=== PATIENT | female | born 1930 | race African-American/Black ===

== ENCOUNTER 2018-06-14 17:46 | Inpatient (IN) | payer OTHER ==
[~2018-06-14] VITALS: Ht 167.6 cm; Wt 36.3 kg
[2018-06-14 17:47] VITALS: BP 78/59
[2018-06-14 18:13] LABS: ABSOLUTE NEUTROPHILS 7.3 thou/uL (1.4-8.2); BASOPHILS 0.6 % (0.0-2.0); HEMATOCRIT 36.2 % (37.0-47.0); LYMPHOCYTES 23.6 % (24.0-44.0); MCH 30.3 pg (26.0-34.0); MCV 91.7 fL (80.0-100.0); MONOCYTES 6.4 % (1.0-8.0); PLATELET COUNT 256 thou/uL (150-400); POLYS 68.4 % (36.0-66.0); RBC 3.95 mil/uL (4.20-5.00); RDW 15.7 % (10.5-14.5); URINE BILIRUBIN NEGATIVE (Negative); URINE BLOOD NEGATIVE (Negative); URINE CLARITY CLEAR; URINE COLOR YELLOW; URINE GLUCOSE-RANDOM* NEGATIVE (Negative); URINE KETONES NEGATIVE (Negative); URINE LEUKOCYTES-REFLEX NEGATIVE (Negative); URINE NITRITE-REFLEX NEGATIVE (Negative); URINE PROTEIN (DIPSTICK) NEGATIVE (Negative); URINE UROBILINOGEN 0.2 E.U./dl (0.2-1.0); WBC 10.6 thou/uL (4.0-11.0)
[2018-06-14 18:22] LABS: ANION GAP 16 mmol/L (7-16); BUN 61 mg/dL (7-18); CALCIUM 8.3 mg/dL (8.5-10.1); CHLORIDE 129 mmol/L (98-107); CO2 21 mmol/L (21-32); CREATININE 2.9 mg/dL (0.6-1.0); GLUCOSE 149 mg/dL (74-106); POTASSIUM 4.7 mmol/L (3.5-5.1)
[2018-06-14] MEDS ORDERED: SENNA8.6 MG PO (18:27)
[2018-06-14] MEDS ORDERED: MEGESTROL400 MG/11 PO (18:27)
[2018-06-14] MEDS ORDERED: METFORMIN HCL500 MG PO (18:27)
[2018-06-14 18:28] LABS: DIRECT BILIRUBIN < 0.1 mg/dL (<0.1-0.3); SGOT 17 U/L (15-37); SGPT 17 U/L (30-65); SODIUM 166 mmol/L (136-145); TOTAL BILIRUBIN 0.4 mg/dL (<0.1-1.0); TOTAL PROTEIN 7.6 g/dL (6.4-8.2)
[2018-06-14] MEDS ORDERED: REMERON15 MG PO (18:28)
[2018-06-14] MEDS ORDERED: CLONAZEPAM 1 MG1 M1 PO (18:28)
[2018-06-14] MEDS ORDERED: PRAVACHOL40 MG PO (18:28)
[2018-06-14] MEDS ORDERED: IBUPROFEN 600600 M1 PO (18:28)
[2018-06-14 19:46] VITALS: BP 115/48
[2018-06-14 23:30] VITALS: BP 126/69
[2018-06-15 04:20] VITALS: BP 162/72
[2018-06-15 18:00] VITALS: BP 131/88
[2018-06-15 19:45] VITALS: BP 131/61
[2018-06-15 21:00] VITALS: BP 151/78
[2018-06-16 03:50] VITALS: BP 119/45
[2018-06-16 06:01] LABS: MCH 30.4 pg (26.0-34.0); MCHC 33.2 g/dL (28.0-37.0); MCV 91.5 fL (80.0-100.0); RBC 3.28 mil/uL (4.20-5.00); RDW 15.2 % (10.5-14.5); WBC 8.7 thou/uL (4.0-11.0)
[2018-06-16 07:01] LABS: CALCIUM 8.1 mg/dL (8.5-10.1); POTASSIUM 5.1 mmol/L (3.5-5.1)
[2018-06-16 07:44] VITALS: BP 126/45
[2018-06-16 16:30] VITALS: BP 141/57
[2018-06-17 04:35] VITALS: BP 129/62
[2018-06-17 05:55] LABS: ALBUMIN 2.5 g/dL (3.4-5.0); CALCIUM 7.8 mg/dL (8.5-10.1); CREATININE 1.8 mg/dL (0.6-1.0); POTASSIUM 5.1 mmol/L (3.5-5.1)
[2018-06-17 06:11] LABS: % SATURATION 39 % (20-39); IRON 59 ug/dL (50-170); TIBC 153 ug/dL (250-450)
[2018-06-17 06:36] LABS: FOLIC ACID 8.1 ng/mL (8.6-58.9)
[2018-06-17 08:08] VITALS: BP 137/59
[2018-06-17 20:02] VITALS: BP 114/59
[2018-06-18 04:41] VITALS: BP 127/51
[2018-06-18 06:04] LABS: CALCIUM 7.7 mg/dL (8.5-10.1); CREATININE 1.6 mg/dL (0.6-1.0); POTASSIUM 4.8 mmol/L (3.5-5.1)
[2018-06-18 07:42] VITALS: BP 145/61
[2018-06-18 11:46] VITALS: BP 113/54
[2018-06-18 15:31] VITALS: BP 126/58
[2018-06-18 19:42] VITALS: BP 134/59
[2018-06-19 06:00] LABS: CALCIUM 7.8 mg/dL (8.5-10.1); CREATININE 1.6 mg/dL (0.6-1.0); POTASSIUM 4.7 mmol/L (3.5-5.1)
[2018-06-19 13:04] VITALS: BP 134/59
[2018-06-19 15:30] VITALS: BP 130/42
[2018-06-19 19:31] VITALS: BP 159/61
[2018-06-20 04:40] VITALS: BP 130/57
[2018-06-20 05:10] LABS: HEMATOCRIT 30.8 % (37.0-47.0); HEMOGLOBIN 10.1 gm/dL (12.0-15.0); MCH 29.7 pg (26.0-34.0); MCHC 32.8 g/dL (28.0-37.0); MCV 90.6 fL (80.0-100.0); RBC 3.4 mil/uL (4.20-5.00); RDW 14.4 % (10.5-14.5); WBC 8.1 thou/uL (4.0-11.0)
[2018-06-20 05:22] LABS: CALCIUM 7.7 mg/dL (8.5-10.1); CREATININE 1.6 mg/dL (0.6-1.0); POTASSIUM 4.6 mmol/L (3.5-5.1)
[2018-06-20 07:14] VITALS: BP 130/53
[2018-06-20 11:56] VITALS: BP 130/53
[2018-06-20 15:22] VITALS: BP 160/52
[2018-06-20 20:06] VITALS: BP 145/52
[2018-06-21 06:04] LABS: HEMATOCRIT 31.5 % (37.0-47.0); HEMOGLOBIN 10.5 gm/dL (12.0-15.0); MCH 30.4 pg (26.0-34.0); MCHC 33.4 g/dL (28.0-37.0); MCV 90.9 fL (80.0-100.0); RBC 3.46 mil/uL (4.20-5.00); RDW 14.8 % (10.5-14.5); WBC 9.8 thou/uL (4.0-11.0)
[2018-06-21 06:20] LABS: ALBUMIN 2.6 g/dL (3.4-5.0); CALCIUM 7.7 mg/dL (8.5-10.1); CREATININE 1.5 mg/dL (0.6-1.0); POTASSIUM 4.1 mmol/L (3.5-5.1); TOTAL BILIRUBIN 0.7 mg/dL (<0.1-1.0); TOTAL PROTEIN 6.6 g/dL (6.4-8.2)
[2018-06-21 07:30] VITALS: BP 149/55
[2018-06-21] MEDS ORDERED: CLONAZEPAM 0.50.5 M1 PO (10:17)
== END 2018-06-21 16:10 | DRG 682 ==
LOC: ER 17:46 → 3W 19:14 → EROBS 19:14 → 3W 20:30 → 4E 06-18 20:28
PROVIDERS: Emergency Medicine; Internal Medicine
DX: N17.9 Acute kidney failure, unspecified (principal); E43 Unspecified severe protein-calorie malnutrition; E87.0 Hyperosmolality and hypernatremia; Z68.1 Body mass index [BMI] 19.9 or less, adult; E86.0 Dehydration; I95.9 Hypotension, unspecified; E11.9 Type 2 diabetes mellitus without complications; I10 Essential (primary) hypertension; F03.90 Unspecified dementia, unspecified severity, without behavioral disturbance, psychotic disturbance, mood disturbance, and anxiety; G24.01 Drug induced subacute dyskinesia; E78.5 Hyperlipidemia, unspecified; D64.9 Anemia, unspecified; R13.12 Dysphagia, oropharyngeal phase; E53.8 Deficiency of other specified B group vitamins; Z79.899 Other long term (current) drug therapy; Z23 Encounter for immunization; Z88.8 Allergy status to other drugs, medicaments and biological substances
CPT/HCPCS: 10183; 10879

== ENCOUNTER 2018-06-22 13:11 | Emergency (ER) | payer OTHER ==
[~2018-06-22] VITALS: Ht 167.6 cm; Wt 36.3 kg
[~2018-06-22 13:11] MED LIST: CLONAZEPAM 0.50.5 M1 PO; CLONAZEPAM 1 MG1 M1 PO; IBUPROFEN 600600 M1 PO; MEGESTROL400 MG/11 PO; METFORMIN HCL500 MG PO; PRAVACHOL40 MG PO; REMERON15 MG PO; SENNA8.6 MG PO
== END 2018-06-22 17:00 ==
LOC: ER 13:11
DX: S00.83XA Contusion of other part of head, initial encounter (principal); S09.90XA Unspecified injury of head, initial encounter; F03.90 Unspecified dementia, unspecified severity, without behavioral disturbance, psychotic disturbance, mood disturbance, and anxiety; E11.9 Type 2 diabetes mellitus without complications; I10 Essential (primary) hypertension; Z85.42 Personal history of malignant neoplasm of other parts of uterus; Z87.440 Personal history of urinary (tract) infections; Z88.8 Allergy status to other drugs, medicaments and biological substances; W19.XXXA Unspecified fall, initial encounter; Y93.89 Activity, other specified; Y92.129 Unspecified place in nursing home as the place of occurrence of the external cause; Y99.8 Other external cause status

== ENCOUNTER 2019-08-08 14:48 | Emergency (ER) | payer OTHER ==
[~2019-08-08] VITALS: Ht 157.5 cm; Wt 51.7 kg
[2019-08-08 15:20] VITALS: BP 163/113
== END 2019-08-08 16:45 ==
LOC: ER 14:48
DX: S00.03XA Contusion of scalp, initial encounter (principal); I10 Essential (primary) hypertension; E11.9 Type 2 diabetes mellitus without complications; Z85.42 Personal history of malignant neoplasm of other parts of uterus; Z88.8 Allergy status to other drugs, medicaments and biological substances; W05.0XXA Fall from non-moving wheelchair, initial encounter; Y92.89 Other specified places as the place of occurrence of the external cause; Y93.89 Activity, other specified; Y99.8 Other external cause status